=== PATIENT | female | born 1955 | race Two or more races ===

== ENCOUNTER 2019-05-04 09:44 | Emergency (ER) | payer OTHER ==
[2019-05-04 09:53] VITALS: BMI 34.3
[2019-05-04] MEDS ORDERED: SODIUM CHLORIDE 1,000 ML IV STA (10:30)
[2019-05-04] MEDS ORDERED: ACETAMINOPHEN 1000 MG/100 ML VIAL (NON FORMULARY) IVPB ONE (10:30)
--- NOTE | 2019-05-04 10:32 | PDOC ---
History of Present Illness - General History Source: Patient Exam Limitations: No Limitations <Valentine Noel - Last Filed: 05/04/19 15:09> <Alma Fraga - Last Filed: 05/04/19 15:52> - General Chief Complaint: Pain, Acute Stated Complaint: PAIN Time Seen by Provider: 05/04/19 09:57 Past History - Travel Traveled outside of the country in the last 30 days: No Close contact w/someone who was outside of country & ill: No - Past Medical History Diabetes: Yes (PRE-NOT YET MEDICATED) HTN: Yes - Surgical History Cholecystectomy: Yes (2001) - Suicide/Smoking/Psychosocial Hx Smoking Status: No Smoking History: Never smoked Number of Cigarettes Smoked Daily: 0 Information on smoking cessation initiated: No Hx Alcohol Use: No Drug/Substance Use Hx: No <Valentine Noel - Last Filed: 05/04/19 15:09> <Alma Fraga - Last Filed: 05/04/19 15:52> - Past Medical History Allergies/Adverse Reactions: Allergies Allergy/AdvReac Type Severity Reaction Status Date / Time No Known Allergies Allergy Verified 05/04/19 09:51 Home Medications: Ambulatory Orders Lorazepam [Ativan] 1 mg PO BID 01/07/13 Propranolol HCl 10 mg PO DAILY 01/07/13 Acetaminophen [Tylenol -] 1,000 mg PO Q6H #30 tablet 05/04/19 Lisinopril [Prinivil] 5 mg PO DAILY 05/04/19 Tamsulosin HCl [Flomax] 0.4 mg PO DAILY #7 capsule 05/04/19 Review of Systems - Review of Systems Able to Perform ROS?: Yes Comments:: 05/04/19 10:58 CONSTITUTIONAL: Absent: fever, chills, diaphoresis, generalized weakness, malaise, loss of appetite HEENT: Absent: rhinorrhea, nasal congestion, throat pain, throat swelling, difficulty swallowing, mouth swelling, ear pain, eye pain, visual Changes CARDIOVASCULAR: Absent: chest pain, loss of consciousness, palpitations, irregular heart rate, peripheral edema RESPIRATORY: Absent: cough, shortness of breath, dyspnea with exertion, orthopnea, wheezing, stridor, hemoptysis GASTROINTESTINAL: Absent: abdominal pain, abdominal distension, nausea, vomiting, diarrhea, constipation, melena, hematochezia GENITOURINARY: Present: R flank pain, dysuria, frequency, incontinence. Absent: urgency, hesitancy, hematuria, genital pain MUSCULOSKELETAL: Absent: myalgia, arthralgia, joint swelling SKIN: Absent: rash, itching, pallor HEMATOLOGIC/IMMUNOLOGIC: Absent: easy bleeding, easy bruising, lymphadenopathy, frequent infections ENDOCRINE: Absent: unexplained weight gain, unexplained weight loss, heat intolerance, cold intolerance NEUROLOGIC: Absent: headache, focal weakness or paresthesias, dizziness, unsteady gait, seizure, mental status changes, bladder or bowel incontinence PSYCHIATRIC: Absent: anxiety, depression, suicidal or homicidal ideation, hallucinations. Is the patient limited Moh[place] proficient: No <Valentine Noel - Last Filed: 05/04/19 15:09> *Physical Exam - Vital Signs Last Vital Signs Temp Pulse Resp BP Pulse Ox 98.5 F 68 16 116/68 99 05/04/19 09:51 05/04/19 09:51 05/04/19 09:51 05/04/19 09:51 05/04/19 09:51 - Physical Exam Comments: 05/04/19 10:59 GENERAL: Well developed, well nourished. Awake and alert. No acute distress. HEENT: Normocephalic, atraumatic. PERRLA, EOMI. No conjunctival pallor. Sclera are non- icteric. Moist mucous membranes. Oropharynx is clear. NECK: Supple. Full ROM. No JVD. Carotid pulses 2+ and symmetric, without bruits. No thyromegaly. No lymphadenopathy. CARDIOVASCULAR: Regular rate and rhythm. No murmurs, rubs, or gallops. Distal pulses are 2+ and symmetric. PULMONARY: No evidence of respiratory distress. Lungs clear to auscultation bilaterally. No wheezing, rales or rhonchi. ABDOMINAL: Soft. Non-tender. Non-distended. No rebound or guarding. No organomegaly. Normoactive bowel sounds. MUSCULOSKELETAL TTP of the paraspinous muscles at the low back L3-L5. No midline tenderness. (- ) straight leg raise testing. Normal range of motion at all joints. No bony deformities or tenderness. (+) R CVA tenderness. EXTREMITIES: No cyanosis. No clubbing. No edema. No calf tenderness. SKIN: Warm and dry. Normal capillary refill. No rashes. No jaundice. NEUROLOGICAL: Alert, awake, appropriate. Cranial nerves 2-12 intact. No deficits to light touch and temperature in face, upper extremities and lower extremities. No motor deficits in the in face, upper extremities and lower extremities. Normoreflexic in the upper and lower extremities. Normal speech. Toes are down- going bilaterally. Gait is normal without ataxia. PSYCHIATRIC: Cooperative. Good eye contact. Appropriate mood and affect. <Valentine Noel - Last Filed: 05/04/19 15:09> - Vital Signs Last Vital Signs Temp Pulse Resp BP Pulse Ox 97.6 F 55 L 16 141/48 L 99 05/04/19 13:38 05/04/19 13:38 05/04/19 09:51 05/04/19 13:38 05/04/19 13:38 <Alma Fraga - Last Filed: 05/04/19 15:52> ED Treatment Course - LABORATORY CBC & Chemistry Diagram: 05/04/19 10:58 05/04/19 10:58 - RADIOLOGY Radiology Studies Ordered: Category Date Time Status SPIRAL- RENAL-STONE CT [CT] Stat CT Scan 05/04/19 10:30 Ordered CHEST PA & LAT [RAD] Stat Radiology 05/04/19 10:30 Ordered <Valentine Noel - Last Filed: 05/04/19 15:09> - LABORATORY CBC & Chemistry Diagram: 05/04/19 10:58 05/04/19 10:58 - ADDITIONAL ORDERS Additional order review: Laboratory Results 05/04/19 05/04/19 05/04/19 10:59 10:58 10:58 PT with INR 11.80 INR 1.00 Sodium 141 Potassium 4.2 Chloride 108 H Carbon Dioxide 29 Anion Gap 3 L BUN 18.5 H Creatinine 0.8 Est GFR (CKD-EPI)AfAm 90.94 Est GFR (CKD-EPI)NonAf 78.46 Random Glucose 91 Calcium 9.3 Total Bilirubin 0.4 AST 9 L ALT 20 Alkaline Phosphatase 90 Total Protein 7.8 Albumin 4.2 Urine Color Yellow Urine Appearance Clear Urine pH 5.0 Ur Specific [place] 1.028 Urine Protein Negative Urine Glucose (UA) Negative Urine Ketones Negative Urine Blood 2+ H Urine Nitrite Negative Urine Bilirubin Negative Urine Urobilinogen 0.2 Ur Leukocyte Esterase Trace Urine WBC (Auto) 4 Urine RBC (Auto) 50 Urine Casts (Auto) 3 U Epithel Cells (Auto) 1.8 Urine Bacteria (Auto) 106.5 05/04/19 10:58 RBC 5.34 H MCV 80.8 MCHC 33.0 RDW 13.9 Neutrophils % 62.3 Lymphocytes % 28.1 Monocytes % 6.5 Eosinophils % 2.2 Basophils % 0.9 - Medications Given in the ED: ED Medications Discontinued Medications Generic Name Dose Route Start Last Admin Trade Name Kelly PRN Reason Stop Dose Admin Acetaminophen 1,000 mg 05/04/19 10:30 05/04/19 11:00 Ofirmev Injection - IVPB 05/04/19 10:31 1,000 mg ONCE ONE Administration Sodium Chloride 1,000 mls @ 1,000 mls/hr 05/04/19 10:30 05/04/19 11:00 Normal Saline - IV 05/04/19 11:29 1,000 mls/hr ASDIR STA Administration <Alma Fraga - Last Filed: 05/04/19 15:52> Medical Decision Making - Medical Decision Making 05/04/19 10:59 The patient is a 63 y/o F with PMH of anxiety, HTN, diabetes, psoriasis, kidney stones, presents to the ER with R sided flank pain, dysuria, frequency, urgency , and incontiennce for one week. The patient states that her urinary symptoms started first and then progressed to back pain. She states this pain feels similar to her kidney stone pain. Denies fevers, chills, shortness of breath, chest pain, nausea, vomiting, diarrhea, constipation, hematuria, saddle anesthesia. A/P: R sided flank pain DDX includes but is not limited to: Kidney stone, UTI, [place], MSK strain, less likely appendicitis TTP of the R flank, and R paraspinous muscles L3-L5. No midline tenderness. (-) straight leg raise test. Strength 5/5 b/l of the lower extremities. No gross neuro deficits Basic labs, urine, Renal CT ordered IVF, ofirmev Re-evaluate. 05/04/19 15:09 Pt with multiple kidney stones b/l, all less than 5mm, non-obstructing. Labs WNL, including BUN/Cr Pain relieved with ofirmev and fluids Urine without infection Pt has f/u with Dr. Woods for DC home with strict return precautions I discussed the physical exam findings, ancillary test results and final diagnoses with the patient. I answered all of the patient's questions. The patient was satisfied with the care received and felt comfortable with the discharge plan and treatment plan. The Patient agrees to follow up with the primary care physician/specialist within 24-72 hours. Return precautions were given. <Valentine Noel - Last Filed: 05/04/19 15:09> *DC/Admit/Observation/Transfer - Discharge Dispostion Decision to Admit order: No <Valentine Noel - Last Filed: 05/04/19 15:09> - Attestations Physician Attestion: I reviewed the case with the mid-level practitioner and agree with the mid- level practitioner's assessment, diagnosis and disposition. <Alma Fraga - Last Filed: 05/04/19 15:52> Diagnosis at time of Disposition: Kidney stones - Discharge Dispostion Disposition: HOME Condition at time of disposition: Stable - Prescriptions Prescriptions: Acetaminophen [Tylenol -] 1,000 mg PO Q6H #30 tablet Tamsulosin HCl [Flomax] 0.4 mg PO DAILY #7 capsule - Referrals Referrals: Yarely Mcintosh [Primary Care Provider] - - Patient Instructions Printed Discharge Instructions: DI for Kidney Stones Additional Instructions: Your evaluated for your pain today. You have multiple kidney stones. Place take the Tylenol thousand milligrams every 6 hours for pain. Take the Flomax daily. Please keep your appointment with Dr. Woods for as planned Return to the ER for worsening pain, vomiting, fevers, or if you have any changes in your symptoms. - Post Discharge Activity Forms/Work/School Notes: Back to Work
[2019-05-04] MEDS ORDERED: ACETAMINOPHEN INJECTION 100 ML IVPB ONE (10:43)
[2019-05-04 11:21] LABS: BASO % 0.9 % (0-2.0); EOS % 2.2 % (0-4.5); HEMATOCRIT 43.2 % (32.4-45.2); HEMOGLOBIN 14.2 GM/dL (10.7-15.3); LYMPH % 28.1 % (8-40); MCH 26.6 pg (25.7-33.7); MEAN CELL VOLUME 80.8 fl (80-96); MONO % 6.5 % (3.8-10.2); NEUT % 62.3 % (42.8-82.8); RBC 5.34 M/mm3 (3.60-5.2); RDW 13.9 % (11.6-15.6); WHITE BLOOD COUNT 5.7 K/mm3 (4.0-10.0)
[2019-05-04 11:33] LABS: PROTHROMBIN TIME (PATIENT) 11.8 SEC (9.7-13.0)
[2019-05-04 11:50] LABS: ALBUMIN 4.2 g/dl (3.4-5.0); BILIRUBIN,TOTAL 0.4 mg/dL (0.2-1); BLOOD UREA NITROGEN 18.5 mg/dL (7-18); CALCIUM 9.3 mg/dL (8.5-10.1); CREATININE 0.8 mg/dL (0.55-1.3); POTASSIUM 4.2 mmol/L (3.5-5.1); TOT PROT 7.8 g/dl (6.4-8.2)
[2019-05-04 12:06] LABS: EPI CELLS 1.8 /HPF (0-5/HPF); HYALINE CASTS 3 /lpf (0-8); URINE APPEARANCE CLEAR; URINE BACTERIA 106.5 /hpf (NEGATIVE); URINE BILIRUBIN NEGATIVE (NEGATIVE); URINE COLOR YELLOW; URINE GLUCOSE (UA) NEGATIVE (NEGATIVE); URINE KETONE NEGATIVE (NEGATIVE); URINE LEUK ESTERASE TRACE (NEGATIVE); URINE NITRITE NEGATIVE (NEGATIVE); URINE PROTEIN NEGATIVE (NEGATIVE); URINE RBC 50 /hpf (0-4); URINE UROBILINOGEN 0.2 mg/dL (0.2-1.0); URINE WBC 4 /hpf (0-5)
[2019-05-04 13:39] VITALS: BP 141/48; PULSE 55; TEMP 97.6
== END 2019-05-04 13:45 | disposition home or self-care (01) ==
LOC: JER 09:44
PROC: 3E033NZ Introduction of Analgesics, Hypnotics, Sedatives into Peripheral Vein, Percutaneous Approach (ICD-10-PCS; principal; 2019-05-04)
DX: N20.0 Calculus of kidney (principal)
CPT/HCPCS: 36415; 71046-TC-FY; 74176-TC; 80053; 81003; 85025; 85610; 87086; 96374; 99284-25; J0131; J7030

== ENCOUNTER 2021-09-03 04:36 | Day surgery (SDC) | payer OTHER ==
[2021-08-31 09:19] VITALS: BMI 35.3
[2021-09-03] MEDS ORDERED: PROPOFOL 20 ML ONE (10:00)
[2021-09-03] MEDS ORDERED: MIDAZOLAM HCL 2 MG/2 ML SINGLE DOSE VIAL ONE (10:01)
[2021-09-03] MEDS ORDERED: ACETAMINOPHEN 500 MG TABLET (FP) PO PRN (10:35)
[2021-09-03] MEDS ORDERED: ONDANSETRON 4 MG/2 ML VIAL IVPUSH PRN (10:35)
[2021-09-03] MEDS ORDERED: oxyCODONE HCL 5 MG TABLET PO PRN (10:35)
[2021-09-03] MEDS ORDERED: LACTATED RINGERS SOLUTION 1,000 ML IV SCH (10:45)
[2021-09-03 13:17] VITALS: BP 132/76; PULSE 58; TEMP 96.8
== END 2021-09-03 12:20 | disposition home or self-care (01) ==
LOC: JASU-SURG 04:36
PROVIDERS: ATTEND Urology
PROC: 0TF3XZZ Fragmentation in Right Kidney Pelvis, External Approach (ICD-10-PCS; principal; 2021-09-03 10:00)
DX: N20.0 Calculus of kidney (principal)

== ENCOUNTER 2022-11-11 04:08 | Day surgery (SDC) | payer OTHER ==
[2022-10-09 11:09] VITALS: BMI 33.9
[~2022-11-11 04:08] MED LIST: ACETAMINOPHEN 325 MG TABLET (FP) PO PRN; ONDANSETRON 4 MG/2 ML VIAL IVPUSH PRN; oxyCODONE HCL 5 MG TABLET PO PRN
[2022-11-11 10:23] VITALS: RESP 18
[2022-11-11] MEDS ORDERED: MIDAZOLAM HCL 2 MG/2 ML SINGLE DOSE VIAL ONE (10:59)
[2022-11-11 13:25] VITALS: BP 135/83; PULSE 77; TEMP 97.7
== END 2022-11-11 13:20 | disposition home or self-care (01) ==
LOC: JASU-SURG 04:08
PROVIDERS: ATTEND Urology
PROC: 0TF3XZZ Fragmentation in Right Kidney Pelvis, External Approach (ICD-10-PCS; principal; 2022-11-11 11:30)
DX: N20.0 Calculus of kidney (principal)

== ENCOUNTER → 2023-04-14 | Day surgery (SDC) | payer OTHER ==
[2023-04-11 09:01] VITALS: BMI 33.7
== END | disposition home or self-care (01) ==
LOC: JASU-SURG 03:58
PROVIDERS: ATTEND Urology
DX: Z53.8 Procedure and treatment not carried out for other reasons (principal)

== ENCOUNTER 2023-07-07 04:33 | Day surgery (SDC) | payer OTHER ==
[2023-07-04 09:12] VITALS: BMI 33.3
[2023-07-07 12:24] VITALS: RESP 20
[2023-07-07] MEDS ORDERED: MIDAZOLAM HCL 2 MG/2 ML SINGLE DOSE VIAL ONE ×2 (14:45→15:29)
[2023-07-07] MEDS ORDERED: ONDANSETRON 4 MG/2 ML VIAL ONE (14:45)
[2023-07-07 17:27] VITALS: PULSE 69; TEMP 97.8
[2023-07-07 18:07] VITALS: BP 141/60
== END 2023-07-07 18:11 | disposition home or self-care (01) ==
LOC: JASU-SURG 04:33
PROVIDERS: ATTEND Urology
PROC: 0TF4XZZ Fragmentation in Left Kidney Pelvis, External Approach (ICD-10-PCS; principal; 2023-07-07 14:00)
DX: N20.0 Calculus of kidney (principal)